=== PATIENT | male | born 1950 | race Caucasian/White ===

== ENCOUNTER 2018-11-02 14:14 | Emergency (ER) | payer OTHER, MEDICARE, MEDICAID ==
[~2018-11-02] VITALS: Ht 175.3 cm; Wt 77.1 kg
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
[2018-11-02] MEDS ORDERED: ACHD5005 PO (15:04)
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
[2018-11-02 15:45] VITALS: BP 133/87
== END 2018-11-02 15:47 | disposition home or self-care (01) ==
LOC: ER 14:16
DX: S62.610A Displaced fracture of proximal phalanx of right index finger, initial encounter for closed fracture (principal); S62.612A Displaced fracture of proximal phalanx of right middle finger, initial encounter for closed fracture; I10 Essential (primary) hypertension; E78.00 Pure hypercholesterolemia, unspecified; K21.9 Gastro-esophageal reflux disease without esophagitis; F17.210 Nicotine dependence, cigarettes, uncomplicated; Z90.49 Acquired absence of other specified parts of digestive tract; Z95.5 Presence of coronary angioplasty implant and graft; V49.59XA Passenger injured in collision with other motor vehicles in traffic accident, initial encounter
CPT/HCPCS: 71101; 73130